=== PATIENT | female | born 1995 | race Caucasian/White ===

== ENCOUNTER 2020-12-28 15:10 | Emergency (ER) | payer BC ==
[~2020-12-28] VITALS: Ht 172.7 cm; Wt 129.3 kg
[2020-12-28] MEDS ORDERED: MUCINEX1200 MG PO (18:17)
[2020-12-28] MEDS ORDERED: PROAIR HFA8.5 GM INH (18:17)
[2020-12-28] MEDS ORDERED: ONDANSETRON ODT4 MG SL (18:17)
== END 2020-12-28 20:20 | disposition home or self-care (01) ==
LOC: ER1 15:10
DX: Z23 Encounter for immunization (principal); U07.1 COVID-19; J12.82 Pneumonia due to coronavirus disease 2019; Z90.89 Acquired absence of other organs; Z79.899 Other long term (current) drug therapy
CPT/HCPCS: 71045; 87081; 87880; 99283; M0243